=== PATIENT | female | born 1955 | race Caucasian/White ===

== ENCOUNTER 2019-11-22 13:12 | Outpatient (CLI) | payer OTHER, SELFPAY ==
--- NOTE | ~2019-11-22 | MMUS_ITS ---
EXAMINATION: MM diagnostic liborio RT w carlita, US breast RT limited HISTORY: Probable right breast abnormality TECHNIQUE: Additional 3-D tomosynthesis images of the right breast were performed and synthetic 2-D i mages were generated. CAD analysis was submitted and interpreted. High resolution right breast ultras ound was performed. COMPARISON: Comparison to multiple prior studies sequentially, with oldest reviewed study dated 03/13. FINDINGS: MAMMOGRAPHIC FINDINGS: Breast composed of scattered areas of fibroglandular density. There are no suspicious masses, calcifi cations or architectural distortion in the right breast to suggest malignancy. ULTRASOUND: Right breast ultrasound: Normal heterogeneous echotexture without focal solid or cystic mass. IMPRESSION: 1. No mammographic or sonographic evidence for malignancy in the right breast. 2. Routine yearly screening mammogram and regular clinical breast examination are recommended. BI-RADS Category 1: Negative Reviewed, dictated and finalized at location A. IMPRESSION: 1. No mammographic or sonographic evidence for malignancy in the right breast. 2. Routine yearly screening mammogram and regular clinical breast examination a re recommended. BI-RADS Category 1: Negative
== END 2019-11-22 13:13 | disposition home or self-care (01) ==
LOC: ANHIMG 13:19
PROVIDERS: Visit Provider Registered Nurse
DX: N63.10 Unspecified lump in the right breast, unspecified quadrant (principal); R92.8 Other abnormal and inconclusive findings on diagnostic imaging of breast
CPT/HCPCS: 76642; 77061; 77065; G0279

== ENCOUNTER 2021-10-27 13:51 | Outpatient (CLI) | payer OTHER, SELFPAY ==
--- NOTE | ~2021-10-27 | DEXA_ITS ---
Bone Density Report Name: JULIO FOX Age: 66 Sex: Female Ethnicity: White Date of : 1955 Indication: postmenopausal; screening for osteoporosis; asthma or emphysema; Referring Provider: NUBIA, KELSI Villarreal Study: Bone densitometry was performed. Exam Date: October 27, 2021 Accession number: [id number] Bone Density: Region BMD T-score Z-score Classification AP Spine(L1-L4) 1.029 -0.2 1.9 Normal Femoral Neck (Left) 0.711 -1.2 0.5 Osteopenia Total Hip (Left) 0.818 -1.0 0.4 Normal Femoral Neck (Right) 0.720 -1.2 0.6 Osteopenia Total Hip (Right) 0.863 -0.6 0.8 Normal Total Hip Mean 0.840 -0.8 0.6 Normal World Health Organization criteria for BMD impression classify patients as: Normal (T-score at or above -1.0), Osteopenia (T-score between -1.0 and -2.5), or Osteoporosis (T-score at or below -2.5). 10-year Fracture Risk(1): Major Osteoporotic Fracture 9.0% Hip Fracture 1.0% Reported Risk Factors: [place] (), Neck BMD=0.711, BMI=27.1 (1) FRAX(R) Version 3.08. Fracture probability calculated for an untreated patient. Fracture probability may be lower if the patient has received treatment. Clinical Information Provided by Patient: Has used the following medications: Vitamin D Has the following medical conditions: Asthma or Emphysema Patient maximum height was 67.5 Menopause Age: 48 Does not regularly consume dairy products Drinks caffeinated beverages Onset of menses at age 11 Number of children 3 Impression: The patient has low bone mass, based on the Left Femoral Neck T-score. The patient has an estimated ten-year risk of hip fracture of 1% and an estimated ten-year risk of major fracture of 9%, based on the WHO FRAX algorithm. Discussion: BONE DENSITY IS LOW AT ONE OR MORE SKELETAL SITES. This patient's lowest T-score is low at one or more skeletal sites. It meets the World Health Organization's (WHO) criteria for ?low bone mass? (T-score between -1.0 and -2.5). The patient's 10-year risk of fracture as calculated by FRAX is less than the threshold where pharmacological therapy is recommended by the National Osteoporosis Foundation (NOF). However, all treatment decisions require clinical judgment and consideration of individual patient factors, including patient preferences, comorbidities, previous drug use, risk factors not captured in the FRAX model (e.g., frailty, falls, vitamin D deficiency, increased bone turnover, interval significant decline in bone density) and possible under or overestimation of fracture risk by FRAX. The patient should follow a healthful lifestyle (good nutrition with adequate calcium and vitamin D, and appropriate weight-bearing exercise). Follow-Up: Consider repeating this study in 2 to 3 years to reassess this patient's status, or
--- NOTE | ~2021-10-27 | MM_ITS ---
EXAMINATION: MM screening [facility] BI w carlita HISTORY: Screening mammogram TECHNIQUE: Craniocaudal and mediolateral oblique 3-D tomosynthesis images were obtained and synthetic 2-D images were generated. CAD analysis was submitted and interpreted. COMPARISON: 11/22/2019, 01/19/2019, 03/25/2017 BREAST PARENCHYMAL COMPOSITION: There are scattered areas of fibroglandular density. FINDINGS: There is no suspicious mass, calcification, or architectural distortion to suggest malignan cy in either breast. There has been no suspicious interval change. IMPRESSION: 1. No mammographic evidence of malignancy. 2. Recommend routine screening mammography in one year. BI-RADS Category 1: Negative Reviewed, dictated and finalized at location A.
== END 2021-10-27 13:52 | disposition home or self-care (01) ==
PROVIDERS: Visit Provider Internal Medicine
DX: Z12.31 Encounter for screening mammogram for malignant neoplasm of breast (principal); Z78.0 Asymptomatic menopausal state; M85.852 Other specified disorders of bone density and structure, left thigh; M85.851 Other specified disorders of bone density and structure, right thigh
CPT/HCPCS: 77063; 77067; 77080